=== PATIENT | female | born 1955 | race Caucasian/White ===

== ENCOUNTER 2017-10-28 07:47 | Emergency (ER) | payer BC, OTHER ==
[2017-10-28 08:05] VITALS: BP 117/66
--- NOTE | 2017-10-28 08:35 | UC ---
FLU HPI - HPI Summary HPI Summary: 4 DAYS OF PND, PRIEST, SUBJECTIVE FEVER, CHILLS, FATIGUE. NO COUGH. FELT A THROAT TIGHTNESS LAST NIGHT THAT IS BETTER NOW. - History of Current Complaint Chief Complaint: UCGeneralIllness Stated Complaint: FEVER CONGESTION Time Seen by Provider: 10/28/17 08:13 Hx Obtained From: Patient Hx Last Menstrual Period: menopause Onset/Duration: Gradual Onset, Lasting Days, Still Present Severity Currently: Moderate Severity Initially: Moderate Pain Intensity: 0 Pain Scale Used: 0-10 Numeric Associated Signs & Symptoms: Positive: Fever, Myalgia, Sore Throat, Headache - Allergy/Home Medications Allergies/Adverse Reactions: Allergies Allergy/AdvReac Type Severity Reaction Status Date / Time Chlorpheniramine Allergy Unknown Verified 10/28/17 08:05 [From Pseudo-Chlor] Reaction Details Pseudoephedrine Allergy Unknown Verified 10/28/17 08:05 [From Pseudo-Chlor] Reaction Details PSEUDOCHOLESTERASE Allergy Severe TEMPORARY Uncoded 10/28/17 08:05 PARALYSIS PMH/Surg Hx/FS Hx/Imm Hx Endocrine History: Hypothyroidism - Surgical History Surgical History: Yes Surgery Procedure, Year, and Place: 1982, 1989, 1996; TUBAL LIGATION; APPENDECTOMY 1994; 1988 LAPROSCOPY WITH D&C FOR MISCARRIAGE - Family History Known Family History: Positive: Hypertension - Social History Alcohol Use: Occasionally Substance Use Type: None Smoking Status (MU): Never Smoked Tobacco - Immunization History Most Recent Influenza Vaccination: 2013 Most Recent Tetanus Shot: up to date Review of Systems Constitutional: Fever, Chills, Fatigue ENT: Sore Throat, Other - PND Respiratory: Cough Cardiovascular: Negative Gastrointestinal: Negative Musculoskeletal: Myalgia Neurological: Headache All Other Systems Reviewed And Are Negative: Yes Physical Exam Triage Information Reviewed: Yes Appearance: Well-Appearing, No Pain Distress, Well-Nourished Vital Signs: Initial Vital Signs Temp 98.5 F 10/28/17 07:59 Pulse 58 10/28/17 07:59 Resp 18 10/28/17 07:59 BP 117/66 10/28/17 07:59 Pulse Ox 100 10/28/17 07:59 Vital Signs Reviewed: Yes Eyes: Positive: Conjunctiva Clear ENT: Positive: Hearing grossly normal, Pharynx normal, TMs normal Neck: Positive: Supple, Nontender, No Lymphadenopathy Respiratory Exam: Normal Cardiovascular Exam: Normal Abdomen Description: Positive: Soft Musculoskeletal: Positive: No Edema Neurological: Positive: Alert Psychological: Positive: Age Appropriate Behavior Skin: Negative: rashes Flu Course/Dx - Differential Dx/Diagnosis Provider Diagnoses: ACUTE VIRAL SYNDROME Discharge - Discharge Plan Condition: Stable Disposition: HOME Prescriptions: Albuterol HFA INHALER* [Ventolin HFA Inhaler*] 2 puff INH Q4H PRN #1 mdi PRN Reason: Shortness Of Breath Patient Education Materials: Viral Syndrome (ED) Referrals: Mindy Aguiar NP [Primary Care Provider] - If Needed Additional Instructions: YOUR SYMPTOMS CERTAINLY COULD BE RELATED TO THE FLU. GIVEN THE LENGTH OF TIME YOU HAVE BEEN ILL, ADVISE CONSERVATIVE MANAGEMENT - REST, FLUIDS, OTC MEDS NEEDED. FOLLOW-UP WITH YOUR PCP IF YOU ARE NOT IMPROVING EXPECTED OVER THE NEXT 1-2 WEEKS. VIRAL SYNDROME: The physician has diagnosed a viral infection. Viruses not only cause "colds," but can cause many different symptoms including generalized aching, fever, headache, cough, diarrhea, nausea, vomiting, and fatigue. The treatment, for the most part, is simply relief of symptoms. This means that antibiotics are usually not given. Rest, fluids, pain medications and, occasionally, medication for the specific symptoms that are most bothersome will be prescribed. Go to the ED if you develop any new or unusual symptoms such as severe headache, stiff neck, high fever, chest pain, productive cough, or shortness of breath. You should be rechecked if you don't see marked improvement within 10 to 14 days.
== END 2017-10-28 08:34 | disposition home or self-care (01) ==
LOC: UCEAST 07:47
DX: B34.9 Viral infection, unspecified (principal); Z78.0 Asymptomatic menopausal state; E03.9 Hypothyroidism, unspecified
CPT/HCPCS: 99212; G0463

== ENCOUNTER 2019-03-10 02:23 | Emergency (ER) | payer BC ==
[2019-03-10] MEDS ORDERED: NS 0.9% 1000 ML** 1,000 ML IV ONE (02:59)
[2019-03-10] MEDS ORDERED: Morphine 4 MG/ML VIAL (1 ml) 4 MG/ML VIAL IV ONE (02:59)
[2019-03-10] MEDS ORDERED: Ondansetron INJ* 2 MG/ML VIAL IV ONE (03:01)
--- NOTE | 2019-03-10 03:06 | ED ---
Abdominal Pain/Female - HPI Summary HPI Summary: This patient is a 63 year old F presenting to [facility] with a chief complaint of left-sided abdominal pain radiating to all lower abdomen area since last night. The patient rates the pain 7/10 in severity. Symptoms aggravated by nothing. Symptoms alleviated by nothing. Patient reports insomnia, shoulder and hip pain. Patient denies vomiting, nausea, fever. She notes hx of UTI and was recently diagnosed with PMR. Patient takes 20 mg of Prednisone daily for the PMR. Patient denies hx of diverticulitis or kidney stones. Patient has had a C- section done in the past and her last BM was today. - History of Current Complaint Chief Complaint: EDAbdPain Stated Complaint: SEVERE PAIN IN LEFT LOWER ABDOMIN PER PT Time Seen by Provider: 03/10/19 02:43 Hx Obtained From: Patient Hx Last Menstrual Period: menopause ?: No Onset/Duration: Sudden Onset, Lasting Hours - 9, Still Present Timing: Constant Severity Currently: Severe Pain Intensity: 7 Pain Scale Used: 0-10 Numeric Location: Other - left-side Radiates: Yes Radiates to: LLQ, RLQ Aggravating Factor(s): Nothing Alleviating Factor(s): Nothing Associated Signs and Symptoms: Positive: Other: - insomnia. Negative: Fever, Cough, Nausea, Vomiting Allergies/Adverse Reactions: Allergies Allergy/AdvReac Type Severity Reaction Status Date / Time pseudo-chlor Allergy Unknown Uncoded 03/10/19 03:14 Reaction Details pseudochloresterase Allergy Unknown Uncoded 03/10/19 03:13 Reaction Details PMH/Surg Hx/FS Hx/Imm Hx Previously Healthy: No Endocrine/Hematology History: Reports: Hx Thyroid Disease Denies: Hx Diabetes Cardiovascular History: Denies: Hx Congestive Heart Failure, Hx Deep Vein Thrombosis, Hx Hypertension , Hx Myocardial Infarction, Hx Pacemaker/ICD Respiratory History: Denies: Hx Asthma, Hx Chronic Obstructive Pulmonary Disease (COPD), Hx Lung Cancer, Hx Pneumonia, Hx Pulmonary Embolism GI History: Denies: Hx Gall Bladder Disease, Hx Gastrointestinal Bleed, Hx Ulcer, Hx Urosepsis History: Denies: Hx Dialysis, Hx Kidney Stones, Hx Renal Disease Musculoskeletal History: Denies: Hx Rheumatoid Arthritis, Hx Osteoporosis Sensory History: Denies: Hx Hearing Aid Neurological History: Denies: Hx Dementia, Hx Migraine, Hx Seizures, Hx Transient Ischemic Attacks (TIA) Psychiatric History: Reports: Hx Depression Denies: Hx Anxiety, Hx Panic Disorder, Hx Schizophrenia, Hx Bipolar Disorder - Cancer History Hx Chemotherapy: No Hx Radiation Therapy: No - Surgical History Surgery Procedure, Year, and Place: 1982, 1989, 1996; TUBAL LIGATION; APPENDECTOMY 1994; 1988 LAPROSCOPY WITH D&C FOR MISCARRIAGE Infectious Disease History: No Infectious Disease History: Reports: Hx Shingles - 2013, Traveled Outside the [place] in Last 30 Days Denies: Hx Clostridium Difficile, Hx Hepatitis, Hx Human Immunodeficiency Virus (HIV), Hx of Known/Suspected MRSA, Hx Tuberculosis, History Other Infectious Disease - Family History Known Family History: Positive: None, Hypertension - Social History Alcohol Use: Occasionally Hx Substance Use: No Substance Use Type: Reports: None Hx Tobacco Use: No Smoking Status (MU): Never Smoked Tobacco Review of Systems Negative: Fever Positive: Abdominal Pain. Negative: Vomiting, Nausea Musculoskeletal: Other - shoulder and hip pain Psychological: Other - insomnia All Other Systems Reviewed And Are Negative: Yes Physical Exam - Summary Physical Exam Summary: VITAL SIGNS: Reviewed. GENERAL: Patient is a well-developed and nourished FEMALE who is lying comfortable in the stretcher. Patient is not in any acute respiratory distress. HEAD AND FACE: No signs of trauma. No ecchymosis, hematomas or skull depressions. No sinus tenderness. EYES: PERRLA, EOMI x 2, No injected conjunctiva, no nystagmus. EARS: Hearing grossly intact. Ear canals and tympanic membranes are within normal limits. MOUTH: Oropharynx within normal limits. NECK: Supple, trachea is midline, no adenopathy, no JVD, no carotid bruit, no c- spine tenderness, neck with full ROM CHEST: Symmetric, no tenderness at palpation LUNGS: Clear to auscultation bilaterally. No wheezing or crackles. CVS: Regular rate and rhythm, S1 and S2 present, no murmurs or gallops appreciated. ABDOMEN: Soft, LLQ Tenderness. Bowel sounds are normal. EXTREMITIES: FROM in all major joints, no edema, no cyanosis or clubbing. NEURO: Alert and oriented x 3. No acute neurological deficits. Speech is normal and follows commands. SKIN: Dry and warm Triage Information Reviewed: Yes Vital Signs On Initial Exam: Initial Vitals Temp Pulse Resp BP Pulse Ox 97.4 F 60 16 154/65 100 03/10/19 02:25 03/10/19 02:25 03/10/19 02:25 03/10/19 02:25 03/10/19 02:25 Vital Signs Reviewed: Yes Diagnostics - Vital Signs Vital Signs Temp Pulse Resp BP Pulse Ox 03/10/19 02:25 97.4 F 60 16 154/65 100 - Laboratory Result Diagrams: 03/10/19 03:15 03/10/19 03:15 Lab Statement: Any lab studies that have been ordered have been reviewed, and results considered in the medical decision making process. - CT ABD/PELVIS CT Interpretation Completed By: Radiologist Summary of CT Findings: CT A/P IMPRESSION: 1. Cholelithiasis. 2. Appendectomy. 3. Small splenic lesion of indeterminate etiology, possibly cyst or hemangioma. These findings were reviewed by Dr. Diez. Abdominal Pain Fem Course/Dx - Course Course Of Treatment: This patient is a 63 year old F presenting to [facility] with a chief complaint of left abdominal pain since last night. The CC is described as radiating to all lower abdomen area and she notes she cannot sleep because of it. The patient rates the pain 7/10 in severity. Symptoms aggravated by nothing. Symptoms alleviated by nothing. Patient reports shoulder and hip pain. Patient denies vomiting, nausea, fever. She notes hx of UTI and was recently diagnosed with PMR. Patient takes 20 mg of Prednisone daily for the PMR. Patient denies hx of diverticulitis or kidney stones. Patient has had a C- section done in the past and her last BM was today. Physical Exam shows LLQ tenderness. Lab results show Hgb 11.8, amylase 24, UR specific gravity 1.008, urine protein 1+ A, urine blood 3+ A, UR leukocyte esterase 3+ A, Urine WBC ( auto) 3+ A, Urine RBC (auto) 3+ A, UR squamous epithelial cells present A, calcium oxalate crystal present A, uric acid crystals present A, urine bacteria 1+ A, and urine yeast present A. CT ABD/PELVIS Impression: 1. Cholelithiasis. 2. Appendectomy. 3. Small splenic lesion of indeterminate etiology, possibly cyst or hemangioma. During ED Course, the patient was given morphine sulfate, Ondansetron, and IV fluids. Patient was discharged with prescription for Augmentin. She was instructed to follow-up with her primary care provider in 3 days and to return to the Emergency Department for new or worsening symptoms. She understands and is agreeable to this plan. - Diagnoses Provider Diagnoses: Urinary tract infection, Cholelithiasis Discharge - Sign-Out/Discharge Documenting (check all that apply): Patient Departure - Discharge Patient Received Moderate/Deep Sedation with Procedure: No - Discharge Plan Condition: Stable Disposition: HOME Prescriptions: Amoxicillin/Clavulanate TAB* [Augmentin TAB 875*] 875 mg PO BID #14 tab Patient Education Materials: Gallstones (ED), Urinary Tract Infection in Women (ED) Referrals: Ricardo Magallanes MD [Primary Care Provider] - 3 Days Additional Instructions: Follow up with your primary care provider in 3 days. Return to the Emergency Department for new or worsening symptoms. - Attestation Statements Document Initiated by Scribe: Yes Documenting Scribe: Yaneli Cutler Provider For Whom Marco Aibe is Documenting (Include Credential): Alyson Diez MD Scribe Attestation: Yaneli Adame, scribed for Alyson Diez MD on 03/10/19 at 0618. Status of Scribe Document: Ready
[2019-03-10 03:22] LABS: ABS Eosinophils 0.2 10^3/ul (0-0.6); ABS Lymphocytes 2.3 10^3/ul (1.0-4.8); ABS Monocytes 0.7 10^3/ul (0-0.8); ABS Neutrophils 6.6 10^3/ul (1.5-7.7); Eosinophil % 1.6 %; Hematocrit 35 % (35-47); Hemoglobin 11.8 g/dL (12.0-16.0); Lymphocyte % 23.9 %; Mean Corpuscular HGB Conc 34 g/dL (31-36); Mean Corpuscular Hemoglobin 31 pg (27-31); Mean Corpuscular Volume 92 fL (80-97); Mean Platelet Volume 7.9 fL (7.4-10.4); Platelet Count 334 10^3/uL (150-450); Red Blood Count 3.82 10^6 /uL (3.70-4.87); Red Cell Distribution Width 12 % (10-15); White Blood Count 9.8 10^3/uL (3.5-10.8)
[2019-03-10 03:39] LABS: Albumin 3.9 g/dL (3.2-5.2); Albumin/Globulin Ratio 1.6 (1-3); BUN/Creatinine Ratio 11.9 (8-20); C Reactive Protein 6.36 mg/L (<8.01); Calcium 9.2 mg/dL (8.6-10.3); EGFR African American 107.9 (>60); EGFR Non-African American 89.2 (>60); Globulin 2.5 g/dL (2-4); Magnesium 2.2 mg/dL (1.9-2.7); Potassium 3.9 mmol/L (3.5-5.0); Total Bilirubin 0.3 mg/dL (0.2-1.0); Total Protein 6.4 g/dL (6.4-8.9)
[2019-03-10 03:42] LABS: Urine Appearance Cloudy; Urine Bacteria 1+ (Absent); Urine Bilirubin Negative (Negative); Urine Blood 3+ (Negative); Urine Color Yellow; Urine Glucose Negative (Negative); Urine Ketones Negative (Negative); Urine Nitrite Negative (Negative); Urine Protein 1+(30 mg/dL) (Negative); Urine Red Blood Cell 3+(>10/hpf) (Absent); Urine Specific Gravity 1.008 (1.010-1.030); Urine Squamous Epithelial Cell Present (Absent); Urine Uric Acid Crystals Present (Absent); Urine Urobilinogen Negative (Negative); Urine White Blood Cell 3+(>20/hpf) (Absent)
[2019-03-10] MEDS ORDERED: Piperacillin/Tazobac ADVAN(*) 3.375 GM in NS 0.9% 100 ML* 100 ML IVPB ONE (03:51)
[2019-03-10] MEDS ORDERED: Iohexol 300* (CONTRAST) 10 ML SDV IV ONE (04:31)
[2019-03-10 08:03] VITALS: BP 130/69
--- NOTE | 2019-03-12 16:34 | PN ---
Progress Note - Progress Note Date of Service: 03/10/19 Note: Final urine culture growing e. coli susceptible to augmentin. No change in treatment needed.
--- NOTE | 2019-03-13 09:27 | ED ---
Progress - Progress Note Progress Note: urine cx sens to augmentin -no change in tx Course/Dx - Course Course Of Treatment: This patient is a 63 year old F presenting to [facility] with a chief complaint of left abdominal pain since last night. The CC is described as radiating to all lower abdomen area and she notes she cannot sleep because of it. The patient rates the pain 7/10 in severity. Symptoms aggravated by nothing. Symptoms alleviated by nothing. Patient reports shoulder and hip pain. Patient denies vomiting, nausea, fever. She notes hx of UTI and was recently diagnosed with PMR. Patient takes 20 mg of Prednisone daily for the PMR. Patient denies hx of diverticulitis or kidney stones. Patient has had a C- section done in the past and her last BM was today. Physical Exam shows LLQ tenderness. Lab results show Hgb 11.8, amylase 24, UR specific gravity 1.008, urine protein 1+ A, urine blood 3+ A, UR leukocyte esterase 3+ A, Urine WBC ( auto) 3+ A, Urine RBC (auto) 3+ A, UR squamous epithelial cells present A, calcium oxalate crystal present A, uric acid crystals present A, urine bacteria 1+ A, and urine yeast present A. CT ABD/PELVIS Impression: 1. Cholelithiasis. 2. Appendectomy. 3. Small splenic lesion of indeterminate etiology, possibly cyst or hemangioma. During ED Course, the patient was given morphine sulfate, Ondansetron, and IV fluids. Patient was discharged with prescription for Augmentin. She was instructed to follow-up with her primary care provider in 3 days and to return to the Emergency Department for new or worsening symptoms. She understands and is agreeable to this plan. - Diagnoses Provider Diagnoses: Urinary tract infection, Cholelithiasis Is Visit Related: No Discharge - Sign-Out/Discharge Documenting (check all that apply): Post-Discharge Follow Up Patient Received Moderate/Deep Sedation with Procedure: No - Discharge Plan Condition: Stable Disposition: HOME Prescriptions: Amoxicillin/Clavulanate TAB* [Augmentin TAB 875*] 875 mg PO BID #14 tab Patient Education Materials: Gallstones (ED), Urinary Tract Infection in Women (ED) Referrals: Ricardo Magallanes MD [Primary Care Provider] - 3 Days Additional Instructions: Follow up with your primary care provider in 3 days. Return to the Emergency Department for new or worsening symptoms. - Billing Disposition and Condition Condition: STABLE Disposition: Home
== END 2019-03-10 08:01 | disposition home or self-care (01) ==
LOC: ED 02:23
DX: N39.0 Urinary tract infection, site not specified (principal); B96.20 Unspecified Escherichia coli [E. coli] as the cause of diseases classified elsewhere; Z87.440 Personal history of urinary (tract) infections; K80.20 Calculus of gallbladder without cholecystitis without obstruction; D73.89 Other diseases of spleen; M25.559 Pain in unspecified hip; M25.519 Pain in unspecified shoulder; Z90.89 Acquired absence of other organs; Z88.8 Allergy status to other drugs, medicaments and biological substances
CPT/HCPCS: 36415; 74177; 80053; 81003; 81015; 82150; 83690; 83735; 85025; 86140; 87077; 87086; 87186; 96361; 96365; 99282; J2543; Q9967

== ENCOUNTER 2024-02-16 11:54 | Inpatient (IN) ==
[2024-02-16 12:43] LABS: Hemoglobin 13.1 g/dL (11.5-14.3); Mean Corpuscular Hemoglobin 31.9 pg (27-33); Mean Corpuscular Hgb Conc 33.7 g/dL (31-36); Mean Corpuscular Volume 94.6 fL (80-97); Platelet Count 263 10^3/uL (150-450); Red Blood Count 4.12 10^6/uL (3.63-4.92); Red Cell Distribution Width 12.8 % (12-17)
[2024-02-16 12:50] LABS: Albumin 4.4 g/dL (3.2-5.2); Albumin/Globulin Ratio 1.9 (1-3); Calcium 9.4 mg/dL (8.6-10.3); Creatinine, Serum 0.81 mg/dL (0.51-0.95); Globulin 2.3 g/dL (2-4); Potassium 3.8 mmol/L (3.5-5.0); Total Bilirubin 0.6 mg/dL (0.2-1.0); Total Protein 6.7 g/dL (6.4-8.9); eGFR CKD-EPI 79.5 (>60)
[2024-02-16 13:19] LABS: ABS Lymphocytes 0.1 10^3/uL (1.0-4.8); ABS Monocytes 0.1 10^3/uL (0.0-0.9); ABS Neutrophils 5.8 10^3/uL (1.5-7.6); Eosinophil % 0.2 %; Lymphocyte % 1.3 %; Nucleated Red Blood Cells % 0.1 %/100WBC (0.0-0.8); RBC Morphology Normal (Normal)
[2024-02-16 14:10] LABS: High Sensitivity Troponin 1 Hr < 3 pg/mL (<15)
[2024-02-16 15:05] LABS: C Reactive Protein 4.57 mg/L (<8.01)
[2024-02-16] MEDS: LACTATED RINGERS IV ONE (15:10)
[2024-02-16] MEDS: Ondansetron 4 mg VIAL 2 MG/ML 2 ml VIAL IV ONE (15:12)
[2024-02-16] MEDS: Lactated Ringers 1000 ml BAG 1,000 ML IV ONE (15:19)
[2024-02-16] MEDS: Iohexol 350 (CONTRAST) 500 ML MDV IV ONE (16:59)
[2024-02-16] MEDS: Piperacillin/Tazobac 3.375 BAG 3.375 GM/100 ML BAG IV ONE (17:08)
[2024-02-16] MEDS: Norepinephrine 4 MG/250mL D5W 4,000 MCG/250 ML BAG IV SCH (18:20)
[2024-02-16 18:24] LABS: Urine Appearance Clear; Urine Bilirubin Negative (Negative); Urine Blood Negative (Negative); Urine Color Light-Yellow; Urine Glucose Negative (Negative); Urine Ketones Negative (Negative); Urine Nitrite Negative (Negative); Urine Protein Negative (Negative); Urine Specific Gravity 1.044 (1.002-1.030); Urine Urobilinogen Negative (Negative)
[2024-02-16 18:29] LABS: Urine Bacteria Absent /HPF (Absent); Urine Red Blood Cell Trace(0-2/hpf) /HPF (0-Trace); Urine Squamous Epithelial Cell Present /HPF (Absent); Urine White Blood Cell Trace(0-5/hpf) /HPF (0-Trace)
[2024-02-16 18:39] LABS: RBC Parasite Smear No Parasites Seen (No Parasite)
[2024-02-17] MEDS: Lactated Ringers 1000 ml BAG 1,000 ML IV ONE ×2 (00:56→21:31)
[2024-02-17] MEDS: Norepinephrine 4 MG/250mL D5W 4,000 MCG/250 ML BAG IV SCH ×2 (03:39→04:34)
[2024-02-17] MEDS ORDERED: Zosyn per Pharmacy NOTE FOLLOW UP SCH (04:00)
[2024-02-17] MEDS: ZOSYN 3.375 GM x ONE DOSE over 30 miuntes IV (04:35)
[2024-02-17] MEDS: Azithromycin 500 mg/250 ml NS 500 MG/250 ML BAG IVPB SCH (05:13)
[2024-02-17 05:36] LABS: ABS Eosinophils 0.3 10^3/uL (0.0-0.5); ABS Lymphocytes 0.4 10^3/uL (1.0-4.8); ABS Monocytes 0.4 10^3/uL (0.0-0.9); ABS Neutrophils 7.2 10^3/uL (1.5-7.6); ABS Nucleated RBC 0.01 10^3/ul; Eosinophil % 3.5 %; Hematocrit 29.6 % (35-45); Hemoglobin 10.4 g/dL (11.5-14.3); Lymphocyte % 4.5 %; Mean Corpuscular Hemoglobin 33.2 pg (27-33); Mean Corpuscular Hgb Conc 35.2 g/dL (31-36); Mean Corpuscular Volume 94.2 fL (80-97); Mean Platelet Volume 8.3 fL (7.5-11.2); Nucleated Red Blood Cells % 0.1 %/100WBC (0.0-0.8); Platelet Count 230 10^3/uL (150-450); Red Blood Count 3.14 10^6/uL (3.63-4.92); Red Cell Distribution Width 13.1 % (12-17); White Blood Count 8.3 10^3/uL (3.8-11.8)
[2024-02-17 06:17] LABS: Calcium 7.6 mg/dL (8.6-10.3); Creatinine, Serum 0.69 mg/dL (0.51-0.95); Potassium 3.7 mmol/L (3.5-5.0); eGFR CKD-EPI 95.1 (>60)
[2024-02-17] MEDS: Enoxaparin 40 MG/0.4 ML SYR SUBCUT SCH (06:33)
[2024-02-17] MEDS: ZOSYN 3.375 GM Q8H per EXTENDED INFUSION IV SCH (07:59)
[2024-02-17] MEDS ORDERED: cefTRIAXone 1 gm/50 mL D5W 1 GM/50 ML BAG IV SCH (09:00)
[2024-02-17 09:21] LABS: TSH Ultra Thyroid Stim Horm 0.4 mcIU/mL (0.34-5.60)
[2024-02-17] MEDS: DOXYcycline 100 MG in NS 0.9% 250 ml 250 ML IVPB SCH (10:44)
[2024-02-17] MEDS: Cosyntropin 0.25 MG VIAL IV ONE (11:54)
[2024-02-17] MEDS: Hydrocortisone INJ 100 MG/2ML 2 ML VIAL IV SCH (16:21)
[2024-02-17] MEDS: cefTRIAXone 1 gm/50 mL D5W 1 GM/50 ML BAG IV SCH (21:04)
[2024-02-18 05:48] LABS: ABS Lymphocytes 0.4 10^3/uL (1.0-4.8); ABS Monocytes 0.2 10^3/uL (0.0-0.9); ABS Neutrophils 4.2 10^3/uL (1.5-7.6); Eosinophil % 0.2 %; Hemoglobin 9.7 g/dL (11.5-14.3); Lymphocyte % 9.1 %; Mean Corpuscular Hemoglobin 32.8 pg (27-33); Mean Corpuscular Hgb Conc 34.7 g/dL (31-36); Mean Corpuscular Volume 94.4 fL (80-97); Mean Platelet Volume 8.6 fL (7.5-11.2); Platelet Count 186 10^3/uL (150-450); Red Blood Count 2.97 10^6/uL (3.63-4.92); White Blood Count 4.8 10^3/uL (3.8-11.8)
[2024-02-18 06:12] LABS: Albumin 3.1 g/dL (3.2-5.2); Albumin/Globulin Ratio 1.5 (1-3); Calcium 8.2 mg/dL (8.6-10.3); Creatinine, Serum 0.54 mg/dL (0.51-0.95); Globulin 2.1 g/dL (2-4); Magnesium 1.8 mg/dL (1.9-2.7); Potassium 3.5 mmol/L (3.5-5.0); Total Bilirubin 0.3 mg/dL (0.2-1.0); Total Protein 5.2 g/dL (6.4-8.9); eGFR CKD-EPI 100.8 (>60)
[2024-02-18 07:50] LABS: Immature Retic Fraction 0.42
[2024-02-18 07:52] LABS: C Reactive Protein 121.6 mg/L (<8.01)
[2024-02-18] MEDS: Magnesium Sulfate 2 gm BAG 2 GM/50 ML BAG IVPB ONE (08:06)
[2024-02-18 08:49] LABS: Corrected Retic Count 0.7 % (0.5-2.2); RBC Retic Count 2.97 10^6/ul (3.63-4.92)
[2024-02-18] MEDS: Calcium Carb (TUMS) 500 mg CHEW TAB PO PRN (19:36)
[2024-02-19 05:25] LABS: ABS Eosinophils 0.2 10^3/uL (0.0-0.5); ABS Lymphocytes 1.3 10^3/uL (1.0-4.8); ABS Monocytes 0.3 10^3/uL (0.0-0.9); ABS Neutrophils 2.3 10^3/uL (1.5-7.6); Eosinophil % 5.9 %; Hematocrit 26.7 % (35-45); Hemoglobin 9.3 g/dL (11.5-14.3); Lymphocyte % 30.2 %; Mean Corpuscular Hemoglobin 32.8 pg (27-33); Mean Corpuscular Hgb Conc 34.7 g/dL (31-36); Mean Corpuscular Volume 94.4 fL (80-97); Mean Platelet Volume 8.4 fL (7.5-11.2); Nucleated Red Blood Cells % 0.1 %/100WBC (0.0-0.8); Platelet Count 202 10^3/uL (150-450); Red Blood Count 2.83 10^6/uL (3.63-4.92); White Blood Count 4.1 10^3/uL (3.8-11.8)
[2024-02-19 06:05] LABS: Calcium 8.2 mg/dL (8.6-10.3); Creatinine, Serum 0.53 mg/dL (0.51-0.95); Magnesium 1.8 mg/dL (1.9-2.7); Potassium 3.3 mmol/L (3.5-5.0); eGFR CKD-EPI 101.3 (>60)
[2024-02-19] MEDS: Magnesium Sulfate IV 1GM/100ML 1 GM/100 ML BAG IV ONE (07:38)
[2024-02-19] MEDS: Potassium Chlor 20 meq TAB.ER PO SCH (08:55)
[2024-02-19 15:20] LABS: Anaplasma phagocytophilum Negative (Negative); B. miyamotoi PCR, B Negative (Negative); Babesia divergens/MO-1 Negative (Negative); Babesia ducani Negative (Negative); Ehrlichia chaffeensis Negative (Negative); Ehrlichia ewingii/canis Negative (Negative); Ehrlichia muris eauclairensis Negative (Negative)
[2024-02-19 20:09] LABS: C Reactive Protein 41.94 mg/L (<8.01)
[2024-02-20 06:20] LABS: ABS Eosinophils 0.4 10^3/uL (0.0-0.5); ABS Lymphocytes 1.4 10^3/uL (1.0-4.8); ABS Monocytes 0.3 10^3/uL (0.0-0.9); ABS Neutrophils 1.2 10^3/uL (1.5-7.6); ABS Nucleated RBC 0.01 10^3/ul; Eosinophil % 11.1 %; Hematocrit 28.3 % (35-45); Lymphocyte % 44.2 %; Mean Corpuscular Hemoglobin 33.6 pg (27-33); Mean Corpuscular Hgb Conc 35.5 g/dL (31-36); Mean Corpuscular Volume 94.6 fL (80-97); Mean Platelet Volume 8.3 fL (7.5-11.2); Nucleated Red Blood Cells % 0.3 %/100WBC (0.0-0.8); Platelet Count 255 10^3/uL (150-450); Red Blood Count 2.99 10^6/uL (3.63-4.92); Red Cell Distribution Width 12.9 % (12-17); White Blood Count 3.3 10^3/uL (3.8-11.8)
[2024-02-20 07:35] LABS: Calcium 7.9 mg/dL (8.6-10.3); Creatinine, Serum 0.58 mg/dL (0.51-0.95); eGFR CKD-EPI 99.1 (>60)
[2024-02-20 11:41] LABS: Magnesium 1.9 mg/dL (1.9-2.7)
[2024-02-20] MEDS: Ondansetron 4 mg VIAL 2 MG/ML 2 ml VIAL IV PRN (20:06)
[2024-02-21 07:14] LABS: Calcium 8.5 mg/dL (8.6-10.3); Creatinine, Serum 0.65 mg/dL (0.51-0.95); Potassium 3.9 mmol/L (3.5-5.0); eGFR CKD-EPI 96.4 (>60)
[2024-02-21 07:36] LABS: ABS Eosinophils 0.3 10^3/uL (0.0-0.5); ABS Lymphocytes 1.4 10^3/uL (1.0-4.8); ABS Monocytes 0.3 10^3/uL (0.0-0.9); ABS Neutrophils 1.4 10^3/uL (1.5-7.6); ABS Nucleated RBC 0.01 10^3/ul; Eosinophil % 9.2 %; Hematocrit 31.4 % (35-45); Hemoglobin 10.9 g/dL (11.5-14.3); Lymphocyte % 41.6 %; Mean Corpuscular Hemoglobin 33.1 pg (27-33); Mean Corpuscular Hgb Conc 34.8 g/dL (31-36); Mean Corpuscular Volume 95.1 fL (80-97); Mean Platelet Volume 8.1 fL (7.5-11.2); Nucleated Red Blood Cells % 0.2 %/100WBC (0.0-0.8); Platelet Count 273 10^3/uL (150-450); Red Blood Count 3.31 10^6/uL (3.63-4.92); Red Cell Distribution Width 12.9 % (12-17); White Blood Count 3.4 10^3/uL (3.8-11.8)
[2024-02-21 09:46] VITALS: BP 123/55
== END 2024-02-21 13:55 | disposition home or self-care (01) | DRG 291 ==
LOC: ED 11:54 → EDHOLD 02-17 02:50 → SUATTDRO 02-17 02:50 → ICU 02-17 03:02 → MED 02-19 15:35
PROVIDERS: ADMIT Internal Medicine; ATTEND Internal Medicine